=== PATIENT | female | born 1960 | race Caucasian/White ===

== ENCOUNTER 2021-03-29 14:22 | Emergency (ER) | payer OTHER ==
[~2021-03-29] VITALS: Ht 157.5 cm; Wt 53.5 kg
[2021-03-29] MEDS ORDERED: KETOROLAC TROMETHAMINE 30 MG/ML VIAL IM ONE (16:15)
[2021-03-29] MEDS ORDERED: IBUPROFEN600 MG PO (16:30)
[2021-03-29 17:18] VITALS: BP 130/86
== END 2021-03-29 17:19 | disposition home or self-care (01) ==
LOC: ER 14:56
DX: M79.672 Pain in left foot (principal); M77.52 Other enthesopathy of left foot and ankle
CPT/HCPCS: 73630; 99283; J1885